=== PATIENT | female | born 1950 | race Caucasian/White ===

== ENCOUNTER 2018-11-20 18:30 | Inpatient (IN) | payer MEDICAID, OTHER ==
[~2018-11-20] VITALS: Ht 154.9 cm; Wt 50.8 kg
[2018-11-20] MEDS ORDERED: METHYLPREDNISOLONE SOD SUCC 125 MG/2 ML VIAL IV STA (19:02)
[2018-11-20] MEDS ORDERED: ALBUTEROL (0.083%) 2.5MG/3ML NEB HHN STA (19:02)
[2018-11-20 19:40] LABS: BASOPHILS % 0.8 % (0.0-2.0); EOSINOPHILS % 1.2 % (0.0-5.0); HEMATOCRIT. 41.1 % (36.0-48.0); LYMPHOCYTES % 16.2 % (20.0-50.0); MEAN CORPUSCULAR HEMOGLOBIN 32.8 pg (28.0-32.0); MEAN CORPUSCULAR VOLUME 96.7 fL (81.0-99.0); MONOCYTES % 5.8 % (2.0-8.0); PLATELET 187 x1000/uL (130-400); RED BLOOD CELL COUNT 4.25 mill/uL (4.2-5.4); RED CELL DISTRIBUTION WIDTH 14.6 % (11.6-14.6)
[2018-11-20 19:41] LABS: CHLORIDE 107 mEq/L (98-107)
[2018-11-20] MEDS ORDERED: SODIUM CHLORIDE 0.9% 1,000 ML IV SCH (21:09)
[2018-11-20 23:00] VITALS: BP 157/87
[2018-11-20] MEDS ORDERED: NA PHOS,M-B/NA PHOS,DI-BA ENEMA 118ML PR PRN (23:45)
[2018-11-20] MEDS ORDERED: ACETAMINOPHEN 650MG SUPP PR PRN (23:45)
[2018-11-20] MEDS ORDERED: DIPHENHYDRAMINE 50MG/ML VIAL IV PRN (23:45)
[2018-11-20] MEDS ORDERED: DEXTROSE 50% WATER 50ML SYRINGE IV PRN (23:45)
[2018-11-20] MEDS ORDERED: IPRATROPIUM/ALBUTEROL 0.5-3(2.5)MG/3ML NEB INH PRN (23:45)
[2018-11-20] MEDS ORDERED: ACETAMINOPHEN 650MG/20.3ML UDC GT PRN (23:45)
[2018-11-20] MEDS ORDERED: CLONIDINE 0.1MG TABLET PO PRN (23:45)
[2018-11-20] MEDS ORDERED: MAGNESIUM/ALUMINUM HYDROXIDE/SIMETHICONE 30ML UDC PO PRN (23:45)
[2018-11-20] MEDS ORDERED: ACETAMINOPHEN 325MG TABLET PO PRN (23:45)
[2018-11-21 04:00] VITALS: BP_SYST 124; BP_SYST 149; BP_DIAS 44; BP_DIAS 68
[2018-11-21] MEDS: METHYLPREDNISOLONE SOD SUCC 125 MG/2 ML VIAL IV SCH ×3 (06:16→17:02)
[2018-11-21] MEDS: SODIUM CHLORIDE 0.9% INJ 3ML FLUSH IVF SCH ×3 (06:17→21:41)
[2018-11-21] MEDS: BLOOD SUGAR DIAGNOSTIC STRIP TEST SCH ×4 (06:17→21:44)
[2018-11-21 07:18] LABS: BASOPHILS % 0.4 % (0.0-2.0); EOSINOPHILS % 0.2 % (0.0-5.0); HEMATOCRIT. 46.6 % (36.0-48.0); HEMOGLOBIN. 15.7 g/dL (12.0-16.0); LYMPHOCYTES % 18.1 % (20.0-50.0); MEAN CORPUSCULAR HEMOGLOBIN 32.8 pg (28.0-32.0); MEAN CORPUSCULAR VOLUME 97.5 fL (81.0-99.0); MEAN PLATELET VOLUME 8.4 fl (7.4-10.4); MONOCYTES % 1.8 % (2.0-8.0); NEUTROPHILS % 79.5 % (40.0-76.0); PLATELET 199 x1000/uL (130-400); RED BLOOD CELL COUNT 4.78 mill/uL (4.2-5.4); RED CELL DISTRIBUTION WIDTH 14.6 % (11.6-14.6)
[2018-11-21 07:29] LABS: CHLORIDE 106 mEq/L (98-107)
[2018-11-21 07:30] VITALS: BP 144/72
[2018-11-21 07:43] LABS: LDL CHOLESTEROL 84 mg/dL (5-100)
[2018-11-21 07:44] LABS: HDL CHOLESTEROL 70 mg/dL (40-59)
[2018-11-21] MEDS: IPRATROPIUM/ALBUTEROL 0.5-3(2.5)MG/3ML NEB INH SCH ×3 (08:50→20:12)
[2018-11-21] MEDS ORDERED: AMLODIPINE 5MG TABLET PO SCH (09:00)
[2018-11-21] MEDS ORDERED: PROMETHAZINE HCL 25MG TABLET PO PRN (09:00)
[2018-11-21] MEDS: INSULIN LISPRO 100 UNITS/ML SUBCUT SCH ×4 (09:41→21:55)
[2018-11-21] MEDS: LEVOFLOXACIN 500MG PREMIX 100 ML IV NR ×2 (10:00→14:20)
[2018-11-21] MEDS ORDERED: AMLODIPINE 10MG TABLET PO NR (10:00)
[2018-11-21] MEDS: PROMETHAZINE/DEXTROMETHORPHAN 6.25-15MG/5ML BOTTLE 120ML PO PRN ×2 (11:17→18:07)
[2018-11-21 12:00] VITALS: BP 114/52
[2018-11-21 16:00] VITALS: BP 121/56
[2018-11-21] MEDS: NICOTINE 21MG PATCH TD SCH (17:02)
[2018-11-21 20:00] VITALS: BP 126/60
[2018-11-22] VITALS: BP 124/49
[2018-11-22] MEDS: IPRATROPIUM/ALBUTEROL 0.5-3(2.5)MG/3ML NEB INH SCH ×4 (01:36→21:35)
[2018-11-22] MEDS: METHYLPREDNISOLONE SOD SUCC 125 MG/2 ML VIAL IV SCH ×3 (02:04→12:25)
[2018-11-22 04:00] VITALS: BP 144/63
[2018-11-22] MEDS: SODIUM CHLORIDE 0.9% INJ 3ML FLUSH IVF SCH ×3 (06:10→21:49)
[2018-11-22] MEDS: BLOOD SUGAR DIAGNOSTIC STRIP TEST SCH ×4 (06:10→21:51)
[2018-11-22] MEDS: NICOTINE 21MG PATCH TD SCH (08:12)
[2018-11-22] MEDS: AMLODIPINE 5MG TABLET PO SCH (08:12)
[2018-11-22] MEDS: INSULIN LISPRO 100 UNITS/ML SUBCUT SCH ×4 (08:13→21:56)
[2018-11-22 08:30] VITALS: BP 139/65
[2018-11-22] MEDS: HYDROCODONE/ACETAMINOPHEN 5/325MG TABLET PO PRN ×2 (09:05→18:19)
[2018-11-22] MEDS ORDERED: LEVOFLOXACIN 250MG PREMIX 50 ML IV SCH (10:00)
[2018-11-22 12:00] VITALS: BP 109/50
[2018-11-22] MEDS: LEVOFLOXACIN 250MG PREMIX 50 ML IV SCH (15:38)
[2018-11-22 16:00] VITALS: BP 118/65
[2018-11-22 20:00] VITALS: BP 124/58
[2018-11-22] MEDS: METHYLPREDNISOLONE SOD SUCC 40 MG/ML VIAL IV SCH (21:49)
[2018-11-23] VITALS: BP 120/60
[2018-11-23] MEDS: IPRATROPIUM/ALBUTEROL 0.5-3(2.5)MG/3ML NEB INH SCH ×3 (02:23→14:20)
[2018-11-23 04:00] VITALS: BP 128/58
[2018-11-23] MEDS: SODIUM CHLORIDE 0.9% INJ 3ML FLUSH IVF SCH ×2 (05:59→14:42)
[2018-11-23] MEDS: INSULIN LISPRO 100 UNITS/ML SUBCUT SCH ×2 (06:01→12:06)
[2018-11-23] MEDS: BLOOD SUGAR DIAGNOSTIC STRIP TEST SCH ×2 (06:01→12:06)
[2018-11-23 08:27] VITALS: BP 136/69
[2018-11-23] MEDS: METHYLPREDNISOLONE SOD SUCC 40 MG/ML VIAL IV SCH (08:28)
[2018-11-23] MEDS: NICOTINE 21MG PATCH TD SCH (08:28)
[2018-11-23] MEDS: AMLODIPINE 5MG TABLET PO SCH (08:29)
[2018-11-23] MEDS ORDERED: P50 MT (11:16)
[2018-11-23] MEDS ORDERED: FLUT1DIS3 INH (11:28)
[2018-11-23] MEDS ORDERED: ALBU90AE INH (11:28)
[2018-11-23 12:00] VITALS: BP 116/67
[2018-11-23] MEDS: LEVOFLOXACIN 250MG PREMIX 50 ML IV SCH (14:42)
[2018-11-23 14:52] VITALS: BP 116/67
== END 2018-11-23 15:10 | disposition home or self-care (01) | DRG 140 ==
LOC: ER 18:30 → 8WST 21:10 → EDBEDREQ 21:13 → EDBEDREQTM 21:13 → ENRESERV 21:48
PROVIDERS: ADMIT Family Medicine; ATTEND Family Medicine
DX: J44.1 Chronic obstructive pulmonary disease with (acute) exacerbation (principal); J96.00 Acute respiratory failure, unspecified whether with hypoxia or hypercapnia; F03.90 Unspecified dementia, unspecified severity, without behavioral disturbance, psychotic disturbance, mood disturbance, and anxiety; E86.0 Dehydration; Z95.1 Presence of aortocoronary bypass graft; R73.9 Hyperglycemia, unspecified; I10 Essential (primary) hypertension; F17.210 Nicotine dependence, cigarettes, uncomplicated; I25.10 Atherosclerotic heart disease of native coronary artery without angina pectoris; Z90.710 Acquired absence of both cervix and uterus
CPT/HCPCS: 36415; 71045; 80061; 82962; 83880; 84484; 85379; 93005; 93970; 94640; 96361; 96374; 99285; J1200; J1815; J1956; J2920; J2930; J7030; J7040; J7620